=== PATIENT | female | born 1980 | race Caucasian/White ===

== ENCOUNTER 2019-07-06 22:15 | Emergency (ER) | payer BC ==
[~2019-07-06] VITALS: Ht 175.3 cm; Wt 68.2 kg
[~2019-07-06 22:15] MED LIST: PERCOCET 325 MG1 TA2 PO
[2019-07-06 22:23] VITALS: TEMP 98.8
[2019-07-07] MEDS ORDERED: NORCO 325 MG-51 TAB PO (00:10)
[2019-07-07] MEDS ORDERED: CRUTCHES MC (00:11)
[2019-07-07 00:37] VITALS: BP 113/90; PULSE 71
== END 2019-07-07 00:40 | disposition home or self-care (01) ==
LOC: COL.ER 22:15
DX: S86.012A Strain of left Achilles tendon, initial encounter (principal); W52.XXXA Crushed, pushed or stepped on by crowd or human stampede, initial encounter; Y93.68 Activity, volleyball (beach) (court); Y92.328 Other athletic field as the place of occurrence of the external cause
CPT/HCPCS: Q4041

== ENCOUNTER 2020-03-09 10:15 | Outpatient (RCR) | payer BC ==
[~2020-03-09 10:15] MED LIST changes: +CRUTCHES MC; +NORCO 325 MG-51 TAB PO
== END 2020-03-15 | disposition still patient (30) ==
LOC: WSPT
DX: M79.672 Pain in left foot (principal); Z98.890 Other specified postprocedural states

== ENCOUNTER 2020-04-06 09:15 | Outpatient (RCR) | payer BC | END 2020-04-22 14:56 | disposition home or self-care (01) | LOC: WSPT 09:15 | DX: S86.012A Strain of left Achilles tendon, initial encounter (principal); Z98.890 Other specified postprocedural states ==

== ENCOUNTER 2021-10-23 10:30 | Outpatient (RCR) | payer BC | END 2021-10-27 | disposition home or self-care (01) | LOC: WSPT | DX: S82.202A Unspecified fracture of shaft of left tibia, initial encounter for closed fracture (principal); Z98.890 Other specified postprocedural states ==

== ENCOUNTER 2021-12-15 13:45 | Outpatient (RCR) | payer BC | END 2021-12-25 | disposition still patient (30) | LOC: WSPT | DX: S82.122A Displaced fracture of lateral condyle of left tibia, initial encounter for closed fracture (principal); X58.XXXA Exposure to other specified factors, initial encounter; Z98.890 Other specified postprocedural states ==

== ENCOUNTER 2022-01-17 09:45 | Outpatient (RCR) | payer BC | END 2022-01-25 | disposition home or self-care (01) | LOC: WSPT | DX: M25.562 Pain in left knee (principal); Z98.890 Other specified postprocedural states ==

== ENCOUNTER 2022-01-30 07:47 | Outpatient (RCR) | payer BC | END 2022-01-30 11:30 | disposition home or self-care (01) | LOC: WSPT 07:47 | DX: S82.122D Displaced fracture of lateral condyle of left tibia, subsequent encounter for closed fracture with routine healing (principal); Z98.890 Other specified postprocedural states ==

== ENCOUNTER → 2023-08-09 | Outpatient (CLI) | payer BC | LOC: MC.RAD 09:44 | DX: Z12.31 Encounter for screening mammogram for malignant neoplasm of breast (principal) ==